=== PATIENT | male | born 1935 | race Caucasian/White ===

== ENCOUNTER → 2021-09-10 | Emergency (ER) | payer OTHER ==
[~2021-09-10] VITALS: Ht 165.1 cm; Wt 63.6 kg
[~2021-09-10] MED LIST: ACETAMINOPHEN 500 MG TABLET PO ONE; AMLO2.5T96 PO; ASPI-1450 PO; ATOR20TA86 PO; BACL10TA PO; CARV6 PO; CLOP75TA60 PO; FAMO20 PO; LIDOCAINE 5% TRANSDERMAL PATCH TD ONE; LISI-892 PO; NITR0.4T SL; PANT-31 PO; ROSU20TA73 PO
[2021-09-10 14:36] VITALS: BP 129/64
== END | disposition home or self-care (01) ==
LOC: EMS 12:22
DX: M16.12 Unilateral primary osteoarthritis, left hip (principal); I11.9 Hypertensive heart disease without heart failure; I25.10 Atherosclerotic heart disease of native coronary artery without angina pectoris; E78.00 Pure hypercholesterolemia, unspecified
CPT/HCPCS: 73503; 99283

== ENCOUNTER 2021-11-27 17:32 | Emergency (ER) | payer OTHER ==
[~2021-11-27] VITALS: Ht 167.6 cm; Wt 63.6 kg
[~2021-11-27 17:32] MED LIST changes: -ACETAMINOPHEN 500 MG TABLET PO ONE; -AMLO2.5T96 PO; -ASPI-1450 PO; -ATOR20TA86 PO; -CLOP75TA60 PO; -LIDOCAINE 5% TRANSDERMAL PATCH TD ONE
[2021-11-27 22:07] LABS: COVID AG,FIA SOURCE NASOPHARYNGEAL
[2021-11-28 00:39] VITALS: BP 159/70
[2021-11-28 01:12] LABS: INFLUENZA TYPE A NEGATIVE FOR TYPE A (NEGATIVE); INFLUENZA TYPE B NEGATIVE FOR TYPE B (NEGATIVE)
== END 2021-11-28 00:53 | disposition home or self-care (01) ==
LOC: EMS 17:32
DX: R05.9 Cough, unspecified (principal); I10 Essential (primary) hypertension; E78.00 Pure hypercholesterolemia, unspecified; K21.9 Gastro-esophageal reflux disease without esophagitis; Z79.899 Other long term (current) drug therapy; Z20.822 Contact with and (suspected) exposure to COVID-19
CPT/HCPCS: 71045; 87426; 87804; 93005; 99285; U0003